=== PATIENT | male | born 1945 | race Caucasian/White ===

== ENCOUNTER 2018-06-12 10:20 | Emergency (ER) | payer MEDICARE, OTHER ==
[~2018-06-12] VITALS: Ht 182.9 cm; Wt 77.1 kg
[~2018-06-12 10:20] MED LIST: ALEVE220 MG PO; ASPIRIN325 PO; CENTRUM SILVER1 EAC2 PO; COQ-10100 MG PO; ELIQUIS2.5 MG PO; FLOMAX0.4 MG PO; HYDROCODONE-AP1 EAC6 PO; LISINOPRIL10 MG PO; PAXIL10 MG PO; PROTONIX40 M1 PO; TUMS PO; VITAMIN E100 UNI2 PO
[2018-06-12] MEDS ORDERED: FLOMAX0.4 MG PO (10:28)
[2018-06-12 10:59] LABS: URINE COLOR YELLOW
[2018-06-12 11:00] LABS: URINE CLARITY CLEAR; URINE GLUCOSE-RANDOM NEGATIVE (Negative); URINE PROTEIN NEGATIVE (Negative)
[2018-06-12 11:01] LABS: URINE BILIRUBIN NEGATIVE (Negative); URINE BLOOD 3+ (Negative); URINE KETONES NEGATIVE (Negative); URINE LEUKOCYTES-REFLEX NEGATIVE (Negative); URINE NITRITE-REFLEX NEGATIVE (Negative); URINE UROBILINOGEN 0.2 E.U./dl (0.2-1.0)
[2018-06-12 11:04] LABS: SQUAMOUS NONE SEEN /LPF (0-3); URINE RBC >20 Many /HPF (0-2); URINE WBC-REFLEX None Seen /HPF (0-5)
[2018-06-12 11:05] LABS: CASTS None Seen /LPF (None Seen); CRYSTALS None Seen /LPF (None Seen); MUCUS None Seen strn/LPF (None Seen)
[2018-06-12 11:10] LABS: BACTERIA-REFLEX None Seen /HPF (None Seen)
[2018-06-12 11:17] LABS: ABSOLUTE BASOPHILS 0.1 thou/uL (0.0-0.2); ABSOLUTE EOSINOPHILS 0.1 thou/uL (0.0-0.7); ABSOLUTE LYMPHOCYTES 1.1 thou/uL (0.8-5.3); ABSOLUTE MONOCYTES 0.5 thou/uL (0.0-1.2); ABSOLUTE NEUTROPHILS 4.7 thou/uL (1.6-8.1); EOSINOPHILS 1.5 %; HEMATOCRIT 48.1 % (42.0-52.0); HEMOGLOBIN 16.1 gm/dL (14.0-18.0); LYMPHOCYTES 16.9 %; MCH 30.2 pg (26.0-34.0); MCHC 33.4 g/dL (28.0-37.0); MCV 90.4 fL (80.0-100.0); MONOCYTES 7.1 %; MPV 8.4 fl. (7.2-11.1); NUCLEATED RBCS 0 /100WBC; PLATELET COUNT* 237 thou/uL (150-400); POLYS 73.5 %; RBC 5.33 mil/uL (4.50-6.00); RDW-CV 13.8 % (10.5-14.5); WBC 6.5 thou/uL (4.0-11.0)
[2018-06-12 11:29] LABS: CALCIUM 8.6 mg/dL (8.5-10.1); POTASSIUM 3.7 mmol/L (3.5-5.1)
[2018-06-12 11:35] LABS: ALBUMIN 3.5 g/dL (3.4-5.0); TOTAL BILIRUBIN 0.6 mg/dL (<0.1-1.0); TOTAL PROTEIN 6.9 g/dL (6.4-8.2)
[2018-06-12 12:41] VITALS: BP 158/78
== END 2018-06-12 12:42 | disposition home or self-care (01) ==
LOC: M.ERS 10:20
PROVIDERS: Nurse Practitioner Family
DX: N40.1 Benign prostatic hyperplasia with lower urinary tract symptoms (principal); R33.8 Other retention of urine; R30.0 Dysuria; F17.210 Nicotine dependence, cigarettes, uncomplicated

== ENCOUNTER 2018-07-08 19:49 | Emergency (ER) | payer MEDICARE, OTHER ==
[~2018-07-08] VITALS: Ht 182.9 cm; Wt 76.2 kg
[2018-07-08] MEDS ORDERED: PROSCAR 5MG TABL5 M1 (20:02)
[2018-07-08 20:23] LABS: URINE BILIRUBIN NEGATIVE (Negative); URINE BLOOD NEGATIVE (Negative); URINE CLARITY CLEAR; URINE COLOR YELLOW; URINE GLUCOSE-RANDOM NEGATIVE (Negative); URINE KETONES NEGATIVE (Negative); URINE LEUKOCYTES-REFLEX NEGATIVE (Negative); URINE NITRITE-REFLEX NEGATIVE (Negative); URINE PROTEIN NEGATIVE (Negative); URINE SPECIFIC GRAVITY 1.015 (1.005-1.030); URINE UROBILINOGEN 0.2 E.U./dl (0.2-1.0)
[2018-07-08 21:20] VITALS: BP 110/63
== END 2018-07-08 21:20 | disposition home or self-care (01) ==
LOC: M.ERS 19:49
PROVIDERS: Physician Assistant
DX: R33.9 Retention of urine, unspecified (principal); N40.0 Benign prostatic hyperplasia without lower urinary tract symptoms; F17.210 Nicotine dependence, cigarettes, uncomplicated